=== PATIENT | female | born 1955 | race Caucasian/White ===

== ENCOUNTER 2019-04-16 08:17 | Observation (INO) | payer BC ==
[2019-04-16] MEDS ORDERED: Sodium Chloride 0.9% 1,000 ML IV ONE (08:30)
[2019-04-16] MEDS ORDERED: Albuterol/Ipratropium 3.0-0.5 MG/3 ML Neb Soln NEB ONE (09:25)
--- NOTE | 2019-04-16 09:25 | EDM.PDOC ---
ED HPI GENERAL MEDICAL PROBLEM - General Chief Complaint: General Stated Complaint: short of breath, body tremors Time Seen by Provider: 04/16/19 08:45 Source of Information: Reports: Patient, Family History Limitations: Reports: No Limitations - History of Present Illness INITIAL COMMENTS - FREE TEXT/NARRATIVE: Patient comes to the ER accompanied by . Sick for three days. Multiple symptoms, including feeling hot/chilled, sore throat, PAPPAS, body aches, cough, nausea, emesis, diarrhea. Describes diarrhea as yellowish. Also feels increased SOB. Heavy smoker. Admits to vaping and thinks that her overall SOB has worsened since she started doing that. is not ill. headache Pain Score (Numeric/FACES): 10 - Related Data Allergies Allergy/AdvReac Type Severity Reaction Status Date / Time No Known Allergies Allergy Verified 04/16/19 12:53 Home Meds: Home Meds ALPRAZolam [Alprazolam] 0.5 mg PO BEDTIME PRN 04/16/19 [History] Calcitriol 0.5 mcg PO DAILY 04/16/19 [History] Lisinopril 20 mg PO DAILY 04/16/19 [History] Omeprazole 20 mg PO DAILY 04/16/19 [History] Sertraline [Zoloft] 3 tab PO DAILY 04/16/19 [History] tiZANidine [Zanaflex] 4 mg PO TID 04/16/19 [History] traZODone HCl [Trazodone HCl] 100 mg PO BEDTIME 04/16/19 [History] Past Medical History Cardiovascular History: Reports: Hypertension Respiratory History: Reports: COPD Gastrointestinal History: Reports: GERD Psychiatric History: Reports: Anxiety, Depression Endocrine/Metabolic History: Reports: Hypomagnesemia, Hypothyroidism, Obesity/ BMI 30+, Other (See Below) (Chronically low serum calcium) Social & Family History - Tobacco Use Smoking Status *Q: Current Every Day Smoker Years of Tobacco use: 50 Packs/Tins Daily: 0.2 Used Tobacco, but Quit: No Second Hand Smoke Exposure: No - Alcohol Use Days Per Week of Alcohol Use: 2 Number of Drinks Per Day: 2 Total Drinks Per Week: 4 - Recreational Drug Use Recreational Drug Use: Yes Drug Use in Last 12 Months: Yes Recreational Drug Type: Reports: Marijuana/Hashish Recreational Drug Use Frequency: Weekly ED ROS GENERAL - Review of Systems Review Of Systems: See Below Constitutional: Reports: Fever, Chills, Malaise, Fatigue, Decreased Appetite. Denies: Night Sweats, Diaphoresis HEENT: Reports: Rhinitis, Throat Pain. Denies: Ear Pain, Eye Discharge, Eye Pain, Throat Swelling, Vertigo, Vision Change Respiratory: Reports: Shortness of Breath, Wheezing, Cough. Denies: Pleuritic Chest Pain, Sputum, Hemoptysis Cardiovascular: Reports: No Symptoms. Denies: Chest Pain, Lightheadedness, Palpitations, Syncope GI/Abdominal: Reports: Diarrhea, Decreased Appetite, Nausea, Vomiting. Denies: Abdominal Pain, Difficulty Swallowing, Hematemesis, Hematochezia : Reports: No Symptoms Musculoskeletal: Reports: Muscle Pain (diffuse aches) Skin: Reports: No Symptoms Neurological: Reports: Headache. Denies: Confusion, Dizziness, Numbness, Paresthesia, Difficulty Walking Psychiatric: Reports: No Symptoms Hematologic/Lymphatic: Reports: No Symptoms ED EXAM, GENERAL - Physical Exam Exam: See Below Exam Limited By: No Limitations General Appearance: Alert, No Apparent Distress, Obese Eye Exam: Bilateral Eye: EOMI, PERRL Ears: Normal External Exam, Normal Canal Nose: No: Nasal Deformity, Nasal Swelling, Nasal Drainage Throat/Mouth: Normal Lips, Normal Voice, No Airway Compromise Head: Atraumatic, Other Neck: Normal Inspection, Supple, Non-Tender, Full Range of Motion Respiratory/Chest: No Respiratory Distress, No Accessory Muscle Use, Chest Non- Tender, Decreased Breath Sounds (throughout), Wheezing (bilaterally). No: Stridor, Accessory Muscle Use, Retractions Cardiovascular: No Murmur, Tachycardia Peripheral Pulses: 2+: Radial (L), Radial (R) GI/Abdominal: Soft, No Distention, Abnormal Bowel Sounds (decreased throughout) . No: Guarding, Rigid, Rebound, Mass (Female) Exam: Deferred Rectal (Female) Exam: Deferred Back Exam: No: CVA Tenderness (L), CVA Tenderness (R), Decreased Range of Motion , Muscle Spasm, Paraspinal Tenderness, Vertebral Tenderness Extremities: Non-Tender, Normal Capillary Refill, Other (equal strength bilaterally) Neurological: Alert, Oriented, Normal Cognition, No Motor/Sensory Deficits Psychiatric: Normal Affect, Normal Mood Skin Exam: Warm, Dry, Intact, Normal Color Course - Vital Signs Last Recorded V/S: Last Vital Signs Temp 38.3 C H 04/16/19 08:19 Pulse 104 H 04/16/19 12:41 Resp 29 H 04/16/19 12:41 BP 126/74 04/16/19 12:41 Pulse Ox 95 04/16/19 12:41 - Orders/Labs/Meds Orders: Active Orders 24 hr Category Date Time Status EKG Documentation Completion [RC] ASDIRECTED Care 04/16/19 08:28 Active RT Aerosol Therapy [RC] ASDIRECTED Care 04/16/19 09:25 Active Chest 1V Frontal [CR] Stat Exams 04/16/19 08:28 Taken PE Chest [Ang Chest] [CT] Stat Exams 04/16/19 09:45 Taken CULTURE BLOOD [BC] Stat Lab 04/16/19 08:45 Received CULTURE BLOOD [BC] Stat Lab 04/16/19 08:55 Received Sodium Chloride 0.9% [Saline Flush] Med 04/16/19 08:28 Active 10 ml FLUSH ASDIRECTED PRN Blood Culture x2 Reflex Set [OM.PC] Stat Oth 04/16/19 08:30 Ordered Saline Lock Insert [OM.PC] Routine Oth 04/16/19 08:28 Ordered Medication Orders Sodium Chloride (Saline Flush) 10 ml FLUSH ASDIRECTED PRN PRN Reason: Keep Vein Open Last Admin: 04/16/19 10:29 Dose: 10 ml Labs: Laboratory Tests 04/16/19 04/16/19 04/16/19 Range/Units 08:45 08:45 08:55 WBC 16.2 H (4.0-10.2) K/uL RBC 4.38 (3.77-5.09) M/uL Hgb 12.3 (11.7-15.5) g/dL Hct 37.1 (34.0-46.0) % MCV 84.7 (84.0-98.0) fL MCH 28.1 L (28.2-33.3) pg MCHC 33.2 (31.7-36.0) g/dL RDW 16.7 H (11.2-14.1) % Plt Count 341 (150-350) K/uL Neut % (Auto) 86.4 H (45.0-80.0) % Lymph % (Auto) 5.4 L (10.0-50.0) % Gove % (Auto) 6.6 (2.0-14.0) % Eos % (Auto) 1.4 (0.0-5.0) % Baso % (Auto) 0.2 (0.0-2.0) % Neut # (Auto) 13.97 H (1.40-7.00) K/uL Lymph # (Auto) 0.87 (0.50-3.50) K/uL Gove # (Auto) 1.06 H (0.00-1.00) K/uL Eos # (Auto) 0.22 (0.00-0.50) K/uL Baso # (Auto) 0.03 (0.00-0.20) K/uL D-Dimer, Quantitative 605 H (0-400) ng/mL Sodium 141 (136-145) mmol/L Potassium 3.9 (3.5-5.1) mmol/L Chloride 104 (98-107) mmol/L Carbon Dioxide 24.8 (21.0-32.0) mmol/L BUN 22 H (7-18) mg/dL Creatinine 0.78 (0.51-1.17) mg/dL Est Cr Clr Drug Dosing 60.50 mL/min Estimated GFR (MDRD) > 60 mL/min Glucose 100 (74-106) mg/dL Lactic Acid (0.4-2.0) mmol/L Calcium 7.7 L (8.5-10.1) mg/dL Magnesium 1.4 L (1.8-2.4) mg/dL Total Bilirubin 0.3 (0.2-1.0) mg/dL AST 37 (15-37) U/L ALT 38 (12-78) U/L Alkaline Phosphatase 88 (46-116) IU/L Troponin I 0.000 (0.000-0.056) ng/mL NT-Pro-B Natriuret Pep 32 (0-125) pg/mL Total Protein 7.4 (6.4-8.2) g/dL Albumin 3.4 (3.4-5.0) g/dL Specimen Type Urine Color Urine Appearance Urine pH (5.0-9.0) Ur Specific [place] (1.005-1.030) Urine Protein (NEGATIVE) mg/dL Urine Glucose (UA) (NEGATIVE) mg/dL Urine Ketones (NEGATIVE) mg/dL Urine Occult Blood (NEGATIVE) Urine Nitrite (NEGATIVE) Urine Bilirubin (NEGATIVE) Urine Urobilinogen (0.2-1.0) E.U./dL Ur Leukocyte Esterase (NEGATIVE) Urine RBC /HPF Urine WBC /HPF Urine Bacteria (NONE TO FEW) /HPF 04/16/19 04/16/19 Range/Units 08:55 09:25 WBC (4.0-10.2) K/uL RBC (3.77-5.09) M/uL Hgb (11.7-15.5) g/dL Hct (34.0-46.0) % MCV (84.0-98.0) fL MCH (28.2-33.3) pg MCHC (31.7-36.0) g/dL RDW (11.2-14.1) % Plt Count (150-350) K/uL Neut % (Auto) (45.0-80.0) % Lymph % (Auto) (10.0-50.0) % Gove % (Auto) (2.0-14.0) % Eos % (Auto) (0.0-5.0) % Baso % (Auto) (0.0-2.0) % Neut # (Auto) (1.40-7.00) K/uL Lymph # (Auto) (0.50-3.50) K/uL Gove # (Auto) (0.00-1.00) K/uL Eos # (Auto) (0.00-0.50) K/uL Baso # (Auto) (0.00-0.20) K/uL D-Dimer, Quantitative (0-400) ng/mL Sodium (136-145) mmol/L Potassium (3.5-5.1) mmol/L Chloride (98-107) mmol/L Carbon Dioxide (21.0-32.0) mmol/L BUN (7-18) mg/dL Creatinine (0.51-1.17) mg/dL Est Cr Clr Drug Dosing mL/min Estimated GFR (MDRD) mL/min Glucose (74-106) mg/dL Lactic Acid 1.5 (0.4-2.0) mmol/L Calcium (8.5-10.1) mg/dL Magnesium (1.8-2.4) mg/dL Total Bilirubin (0.2-1.0) mg/dL AST (15-37) U/L ALT (12-78) U/L Alkaline Phosphatase (46-116) IU/L Troponin I (0.000-0.056) ng/mL NT-Pro-B Natriuret Pep (0-125) pg/mL Total Protein (6.4-8.2) g/dL Albumin (3.4-5.0) g/dL Specimen Type Urinvoid Urine Color Yellow Urine Appearance Clear Urine pH 7.5 (5.0-9.0) Ur Specific [place] 1.015 (1.005-1.030) Urine Protein Negative (NEGATIVE) mg/dL Urine Glucose (UA) Negative (NEGATIVE) mg/dL Urine Ketones Negative (NEGATIVE) mg/dL Urine Occult Blood Negative (NEGATIVE) Urine Nitrite Negative (NEGATIVE) Urine Bilirubin Negative (NEGATIVE) Urine Urobilinogen 0.2 (0.2-1.0) E.U./dL Ur Leukocyte Esterase Negative (NEGATIVE) Urine RBC Not seen /HPF Urine WBC Not seen /HPF Urine Bacteria Not seen (NONE TO FEW) /HPF Meds: Medications Generic Name Dose Route Start Last Admin Trade Name Freq PRN Reason Stop Dose Admin Sodium Chloride 10 ml 04/16/19 08:28 04/16/19 10:29 Saline Flush FLUSH 10 ml ASDIRECTED PRN Administration Keep Vein Open Discontinued Medications Generic Name Dose Route Start Last Admin Trade Name Freq PRN Reason Stop Dose Admin Acetaminophen 650 mg 04/16/19 10:33 04/16/19 10:37 Tylenol PO 04/16/19 10:34 650 mg NOW ONE Administration Albuterol/Ipratropium 3 ml 04/16/19 09:25 04/16/19 09:54 Duoneb 3.0-0.5 Mg/3 Ml NEB 04/16/19 09:26 3 ml ONETIME ONE Administration Sodium Chloride 1,000 mls @ 999 mls/hr 04/16/19 08:30 04/16/19 08:41 Normal Saline IV 04/16/19 09:30 999 mls/hr .BOLUS ONE Administration Magnesium Sulfate/Dextrose 1 100 mls @ 100 mls/hr 04/16/19 09:28 04/16/19 09: 54 gm/ Premix IV 04/16/19 10:27 100 mls/hr ONETIME ONE Administration Magnesium Sulfate/Dextrose 1 100 mls @ 100 mls/hr 04/16/19 11:00 gm/ Premix IV 04/16/19 11:59 ONETIME ONE Iopamidol 100 ml 04/16/19 09:47 04/16/19 10:23 Isovue-370 (76%) IVPUSH 04/16/19 09:48 100 ml ONETIME ONE Administration Iopamidol Confirm 04/16/19 09:58 Isovue-370 (76%) Administered 04/16/19 09:59 Dose 100 ml .ROUTE .STK-MED ONE Methylprednisolone Sodium Succinate 125 mg 04/16/19 10:23 04/16/19 10:29 Solu-Medrol IVPUSH 04/16/19 10:24 125 mg ONETIME ONE Administration Ondansetron HCl 4 mg 04/16/19 10:23 04/16/19 10:29 Zofran IVPUSH 04/16/19 10:24 4 mg ONETIME ONE Administration - Radiology Interpretation Free Text/Narrative:: Chest xray did not show focal acute abnormalities. CT Results Date: 04/16/19 CT Results Time: 11:25 (Moderate hiatal hernia, mild COPD changes, no focal pneumonia or PE) - Re-Assessments/Exams Free Text/Narrative Re-Assessment/Exam: Elevated WBC, mildly elevated troponin, decreased Ca/Mg Troponin and Lactic acid normal. UA unremarkable. Patient given IV fluid bolus, DuoNeb, Zofran, Mag. CT ordered to rule out PE given + DDimer. Chest xray taken showed questionable infiltrate/atelectasis left lower lung but was cleared by Radiology. CT showed no evidence of PE. Influenza negative. Suspect viral illness based on history and exam. No focal pneumonia identified. Blood cultures were ordered given fever/malaise. Mild dehydration. COPD exacerbation. Admit to floor for observation. Departure - Departure Time of Disposition: 11:42 Disposition: Refer to Observation Condition: Good Clinical Impression: Flu-like symptoms COPD (chronic obstructive pulmonary disease) Qualifiers: COPD type: COPD with acute exacerbation Qualified Code(s): J44.1 - Chronic obstructive pulmonary disease with (acute) exacerbation - Discharge Information *PRESCRIPTION DRUG MONITORING PROGRAM REVIEWED*: Not Applicable *COPY OF PRESCRIPTION DRUG MONITORING REPORT IN PATIENT GRISEL: Not Applicable - Problem List & Annotations (1) Flu-like symptoms SNOMED Code(s): 474557768 Code(s): R68.89 - OTHER GENERAL SYMPTOMS AND SIGNS Status: Acute Priority : High Current Visit: Yes Onset Date: 04/13/19 Annotation/Comment:: Body aches/respiratory and GI complaints. Mild dehydration. Suspect respiratory component led to COPD exacerbation (mild). Negative influenza screen. No focal pneumonia on CT/plain films (2) COPD exacerbation SNOMED Code(s): 731044716 Code(s): J44.1 - CHRONIC OBSTRUCTIVE PULMONARY DISEASE W (ACUTE) EXACERBATION Status: Chronic Priority: Medium Current Visit: Yes Annotation/Comment:: Increased SOB over last several days. Patient denies previous diagnosis of COPD but has been lifelong smoker. COPD changes noted on CT per Radiology. Will continue regular nebs. Single dose Solumedrol given in ER. (3) Mild dehydration SNOMED Code(s): 5597367008730 Code(s): E86.0 - DEHYDRATION Status: Acute Priority: Medium Current Visit: Yes Annotation/Comment:: Vomiting and diarrhea x3 days. Decreased PO intake. IV fluid bolus given in ER and will continue to receive maintenance fluids. (4) Tobacco abuse SNOMED Code(s): 232145943 Code(s): Z72.0 - TOBACCO USE Status: Chronic Priority: Medium Current Visit: Yes Annotation/Comment:: Patient has tried to cut down smoking. (5) Anxiety and depression SNOMED Code(s): 330849077 Code(s): F41.9 - ANXIETY DISORDER, UNSPECIFIED; F32.9 - MAJOR DEPRESSIVE DISORDER, SINGLE EPISODE, UNSPECIFIED Status: Chronic Priority: Medium Current Visit: Yes Annotation/Comment:: Increased problems with anxiety and stress since of best friend a month ago. (6) Hypocalcemia SNOMED Code(s): 7753389 Code(s): E83.51 - HYPOCALCEMIA Status: Chronic Priority: Low Current Visit: Yes Annotation/Comment:: Chronic problems with low calcium that has been worked up by primary providers previously. Continue to observe. (7) Hiatal hernia with GERD SNOMED Code(s): 628948961 Code(s): K21.9 - GASTRO-ESOPHAGEAL REFLUX DISEASE WITHOUT ESOPHAGITIS; K44.9 - DIAPHRAGMATIC HERNIA WITHOUT OBSTRUCTION OR GANGRENE Status: Chronic Priority: Low Current Visit: No Annotation/Comment:: Stable per history (8) Hypomagnesemia SNOMED Code(s): 617347472 Code(s): E83.42 - HYPOMAGNESEMIA Status: Acute Priority: Medium Current Visit: Yes Annotation/Comment:: IV Mag replacement ordered. Suspect this is a chronic condition. Will recommend continued supplementation after discharge home. (9) Hypothyroid SNOMED Code(s): 93442188 Code(s): E03.9 - HYPOTHYROIDISM, UNSPECIFIED Status: Chronic Priority: Low Current Visit: No Annotation/Comment:: TSH ordered. Stable per history Qualifiers: Hypothyroidism type: unspecified Qualified Code(s): E03.9 - Hypothyroidism , unspecified - Problem List Review Problem List Initiated/Reviewed/Updated: Yes - My Orders Last 24 Hours: My Active Orders 04/16/19 08:28 EKG Documentation Completion [RC] ASDIRECTED Chest 1V Frontal [CR] Stat Sodium Chloride 0.9% [Saline Flush] 10 ml FLUSH ASDIRECTED PRN Saline Lock Insert [OM.PC] Routine 04/16/19 08:30 Blood Culture x2 Reflex Set [OM.PC] Stat 04/16/19 08:45 CULTURE BLOOD [BC] Stat 04/16/19 08:55 CULTURE BLOOD [BC] Stat 04/16/19 09:25 RT Aerosol Therapy [RC] ASDIRECTED 04/16/19 09:45 PE Chest [Ang Chest] [CT] Stat - Assessment/Plan Admission H&P: Please use this note as an admission H&P Last 24 Hours: My Active Orders 04/16/19 08:28 EKG Documentation Completion [RC] ASDIRECTED Chest 1V Frontal [CR] Stat Sodium Chloride 0.9% [Saline Flush] 10 ml FLUSH ASDIRECTED PRN Saline Lock Insert [OM.PC] Routine 04/16/19 08:30 Blood Culture x2 Reflex Set [OM.PC] Stat 04/16/19 08:45 CULTURE BLOOD [BC] Stat 04/16/19 08:55 CULTURE BLOOD [BC] Stat 04/16/19 09:25 RT Aerosol Therapy [RC] ASDIRECTED 04/16/19 09:45 PE Chest [Ang Chest] [CT] Stat Assessment:: as above Plan: as above. Anticipate discharge likely tomorrow afternoon if patient shows good clinic improvement with above interventions. Patient stable and suitable for general supervision.
[2019-04-16 09:26] LABS: CHLORIDE,CL 104 mmol/L (98-107); SODIUM,NA 141 mmol/L (136-145)
[2019-04-16] MEDS ORDERED: Iopamidol 755 Mg/ML 100 ML Bottle IVPUSH ONE (09:47)
[2019-04-16] MEDS ORDERED: Iopamidol 755 Mg/ML 100 ML Bottle ONE (09:58)
[2019-04-16] MEDS ORDERED: methylPREDNISolone Sodium Succinate 125 MG/2 ML SDV IVPUSH ONE (10:23)
[2019-04-16] MEDS ORDERED: Ondansetron 4 MG/2 ML SDV IVPUSH ONE (10:23)
[2019-04-16] MEDS: Sodium Chloride 0.9% 10 ML Syringe FLUSH PRN ×3 (10:29→14:49)
[2019-04-16] MEDS ORDERED: Acetaminophen 325 MG Tab PO ONE (10:33)
[2019-04-16] MEDS ORDERED: ALPRAZolam 0.25 MG Tab PO PRN (13:32)
[2019-04-16] MEDS ORDERED: Pantoprazole 40 MG Vial IVPUSH ONE (13:33)
[2019-04-16] MEDS ORDERED: Loperamide 2 MG Tab PO ONE (13:34)
[2019-04-16] MEDS: Albuterol/Ipratropium 3.0-0.5 MG/3 ML Neb Soln NEB SCH ×2 (14:40→20:03)
[2019-04-16] MEDS: Calcitriol 0.25 MCG Cap PO SCH (14:40)
[2019-04-16] MEDS: Nicotine 7 MG/24 Hr Patch TRDERM SCH (14:40)
[2019-04-16] MEDS: Sodium Chloride 0.9% 1,000 ML IV SCH ×2 (14:59→23:51)
[2019-04-16] MEDS: Acetaminophen 325 MG Tab PO PRN (15:24)
[2019-04-16] MEDS ORDERED: Ondansetron 4 MG/2 ML SDV IVPUSH PRN (16:30)
[2019-04-16] MEDS ORDERED: Temazepam 15 MG Cap PO ONE (18:58)
[2019-04-16] MEDS ORDERED: traZODone 50 MG Tab PO SCH (20:00)
[2019-04-16] MEDS: tiZANidine 4 MG Tab PO SCH (20:02)
[2019-04-17] MEDS: Acetaminophen 325 MG Tab PO PRN ×2 (01:29→08:01)
[2019-04-17] MEDS: Albuterol/Ipratropium 3.0-0.5 MG/3 ML Neb Soln NEB SCH ×3 (01:30→13:32)
[2019-04-17 07:10] VITALS: BP 156/65; PULSE 110
[2019-04-17 07:43] LABS: CHLORIDE,CL 109 mmol/L (98-107); SODIUM,NA 145 mmol/L (136-145)
[2019-04-17] MEDS: tiZANidine 4 MG Tab PO SCH ×2 (08:00→13:32)
[2019-04-17] MEDS ORDERED: Lisinopril 20 MG Tab PO SCH (08:00)
[2019-04-17] MEDS ORDERED: Sertraline 25 MG Tab PO SCH (08:00)
[2019-04-17] MEDS ORDERED: Remove Patch NICOTINE PATCH TRDERM SCH (08:00)
[2019-04-17] MEDS ORDERED: Omeprazole 20 MG Cap.CR PO SCH (08:00)
[2019-04-17] MEDS: Calcitriol 0.25 MCG Cap PO SCH (08:01)
[2019-04-17] MEDS: Nicotine 7 MG/24 Hr Patch TRDERM SCH (08:03)
[2019-04-17] MEDS: Sodium Chloride 0.9% 1,000 ML IV SCH (08:05)
[2019-04-17] MEDS ORDERED: Magnesium Oxide 400 MG Tab PO ONE (12:19)
--- NOTE | 2019-04-17 13:27 | PCM.DCSUM1 ---
Discharge Summary - Hospital Course Brief History: Patient admitted for observation after experiencing three days of nausea/emesis/diarrhea/sore throat/body aches/cough/fever. Influenza negative. Dehydration. Anxious. Diagnosis: Stroke: No - Discharge Data Discharge Date: 04/17/19 Discharge Disposition: Home, Self-Care 01 Condition: Good - Referral to Home Health Primary Care Physician: Heavenly Bello PA-C - Discharge Diagnosis/Problem(s) (1) Flu-like symptoms SNOMED Code(s): 701095630 ICD Code: R68.89 - OTHER GENERAL SYMPTOMS AND SIGNS Status: Acute Priority: High Onset Date: 04/13/19 Problem Details: Body aches/respiratory and GI complaints. Suspect viral illness. Negative influenza screen. No focal pneumonia on CT/plain films. Feels much improved today. BLood cultures negative on day 1. (2) COPD exacerbation SNOMED Code(s): 646159229 ICD Code: J44.1 - CHRONIC OBSTRUCTIVE PULMONARY DISEASE W (ACUTE) EXACERBATION Status: Chronic Priority: Medium Problem Details: Increased SOB over last several days. Patient denies previous diagnosis of COPD but has been lifelong smoker. COPD changes noted on CT per Radiology. SoluMedrol given in ER. DuoNebs ordered. Patient feels much improved today. Wheezing resolved. Upon discharge patient will receive Rx for Combivent inhaler as well as PRN Albuterol nebs. (3) Mild dehydration SNOMED Code(s): 9545731539188 ICD Code: E86.0 - DEHYDRATION Status: Acute Priority: Medium Problem Details: Vomiting and diarrhea x3 days. Decreased PO intake. IV fluid bolus given in ER and continued to receive maintenance fluids. Able to tolerate PO fluids today. (4) Tobacco abuse SNOMED Code(s): 378352691 ICD Code: Z72.0 - TOBACCO USE Status: Chronic Priority: Medium Problem Details: Patient has tried to cut down smoking. Was given information on smoking cessation. (5) Anxiety and depression SNOMED Code(s): 824552928 ICD Code: F41.9 - ANXIETY DISORDER, UNSPECIFIED; F32.9 - MAJOR DEPRESSIVE DISORDER, SINGLE EPISODE, UNSPECIFIED Status: Chronic Priority: Medium Problem Details: Increased problems with anxiety and stress since of best friend a month ago. To follow up with primary provider. (6) Hypocalcemia SNOMED Code(s): 5657344 ICD Code: E83.51 - HYPOCALCEMIA Status: Chronic Priority: Low Problem Details: Chronic problems with low calcium that has been worked up by primary providers previously. Continue to observe. Level decreased this morning along with Hgb which most likely is secondary to dilutional effect of IV fluids. (7) Hiatal hernia with GERD SNOMED Code(s): 464674977 ICD Code: K21.9 - GASTRO-ESOPHAGEAL REFLUX DISEASE WITHOUT ESOPHAGITIS; K44.9 - DIAPHRAGMATIC HERNIA WITHOUT OBSTRUCTION OR GANGRENE Status: Chronic Priority: Low Problem Details: Stable per history (8) Hypomagnesemia SNOMED Code(s): 044699465 ICD Code: E83.42 - HYPOMAGNESEMIA Status: Acute Priority: Medium Problem Details: IV Mag replacement ordered. Level at low normal today when rechecked. Suspect this is a chronic condition. Will recommend continued supplementation after discharge home. (9) Hypothyroid SNOMED Code(s): 62628260 ICD Code: E03.9 - HYPOTHYROIDISM, UNSPECIFIED Status: Chronic Priority: Low Problem Details: TSH normal Qualifiers: Hypothyroidism type: unspecified Qualified Code(s): E03.9 - Hypothyroidism , unspecified - Patient Summary/Data Hospital Course: Patient received IV fluids/DuoNebs/Zofran/Imodium and was observed overnight. No further emesis. Loose stools improved. No further fevers. Able to tolerate PO food/fluids. Overall feels much improved. Did mention on/off "ovarian" pain for the last year, gradually worsening. Says she was told in past that she had scar tissue around the ovary. History of partial hysterectomy. Focally tender during exam right suprapubic area. US of pelvis ordered for further evaluation with planned follow up with primary provider. Tech did not note any obvious abnormalities. Patient to follow up with primary provider for formal results. - Patient Instructions Diet: Usual Diet as Tolerated Activity: As Tolerated Driving: Do Not Drive Showering/Bathing: May Shower Notify Provider of: Fever, Increased Pain Other/Special Instructions: Continue taking either Magnesium Glycinate or Magnesium Taurate 500mg daily. Follow up with for ultrasound results and further care for your ongoing problems/concerns. Use the nebs twice daily to help with cough/shortness of breath. If needed you can use them every 8 hours. Discuss adding other inhalers to regimen when you follow up with your primary provider. Advance diet as tolerated. Follow up for recheck if you have sudden worsening problems. - Discharge Plan *PRESCRIPTION DRUG MONITORING PROGRAM REVIEWED*: Not Applicable *COPY OF PRESCRIPTION DRUG MONITORING REPORT IN PATIENT GRISEL: Not Applicable Prescriptions/Med Rec: Albuterol [Proventil Neb Soln] 2.5 mg .XX ASDIRECTED PRN #1 box PRN Reason: Shortness Of Breath Albuterol/Ipratropium [Combivent Respimat] 4 gm IH ASDIRECTED #1 aer.w.adap Magnesium Glycinate [Magnesium Bisglycinate Chelate] 500 gm MC DAILY #1 powder Home Medications: Home Meds ALPRAZolam [Alprazolam] 0.5 mg PO BEDTIME PRN 04/16/19 [History] Calcitriol 0.5 mcg PO DAILY 04/16/19 [History] Lisinopril 20 mg PO DAILY 04/16/19 [History] Omeprazole 20 mg PO DAILY 04/16/19 [History] Sertraline [Zoloft] 3 tab PO DAILY 04/16/19 [History] tiZANidine [Zanaflex] 4 mg PO TID 04/16/19 [History] traZODone HCl [Trazodone HCl] 100 mg PO BEDTIME 04/16/19 [History] Albuterol [Proventil Neb Soln] 2.5 mg .XX ASDIRECTED PRN #1 box 04/17/19 [Rx] Albuterol/Ipratropium [Combivent Respimat] 4 gm IH ASDIRECTED #1 aer.w.adap 08/31 [Rx] Magnesium Glycinate [Magnesium Bisglycinate Chelate] 500 gm MC DAILY #1 powder 04/17/19 [Rx] Patient Handouts: Coping with Quitting Smoking, Chronic Obstructive Pulmonary Disease, Hypomagnesemia, What You Need to Know About Electronic Cigarettes, How to Use a Nebulizer, Adult, Nicotine skin patches, Albuterol; Ipratropium solution for inhalation, Dehydration, Adult Forms: ED Department Discharge Referrals: Heavenly Bello PA-C [Primary Care Provider] - - Discharge Summary/Plan Comment DC Time >30 min.: No - General Info Date of Service: 04/17/19 Admission Dx/Problem (Free Text: Flu-like illness for 3 days, dehydration, anxiety Subjective Update: Patient feels significantly improved today. Does complain of intermittent pain in area of right ovary that has been longstanding issue over the past year. Had similar issues in past and told it was due to scar tissue. Functional Status: Reports: Pain Controlled, Tolerating Diet, Ambulating, Urinating. Denies: New Symptoms - Review of Systems General: Reports: Fatigue, Appetite (improving). Denies: Fever, Malaise, Chills , Night Sweats HEENT: Reports: No Symptoms Pulmonary: Reports: Shortness of Breath (much improved. No complaint of SOB at this time. ). Denies: Pleuritic Chest Pain, Cough, Sputum, Hemoptysis, Wheezing Cardiovascular: Reports: No Symptoms. Denies: Chest Pain, Palpitations, Dyspnea on Exertion, Lightheadedness Gastrointestinal: Reports: Diarrhea (much improved), Vomiting (No emesis since admission), Other (discomfort in area of right lower abdomen suprapubically). Denies: Hematochezia, Nausea Genitourinary: Reports: No Symptoms Musculoskeletal: Reports: Other (no acute changes) Skin: Reports: No Symptoms Neurological: Denies: Confusion, Dizziness, Headache, Change in Speech Psychiatric: Reports: Depression (mild), Anxiety (chronic). Denies: Confusion, Mood Lability, Agitation, Cravings, Hallucinations, Suicidal Ideation, Homicidal Ideation - Patient Data Vitals - Most Recent: Last Vital Signs Temp 36.2 C 04/17/19 07:09 Pulse 110 H 04/17/19 07:09 Resp 18 04/17/19 07:09 BP 156/65 H 04/17/19 08:01 Pulse Ox 95 04/17/19 07:09 Weight - Most Recent: 68.674 kg I&O - Last 24 hours: Intake & Output 04/16/19 04/17/19 04/17/19 22:59 06:59 14:59 Intake Total 600 1740 585 Output Total 500 1400 550 Balance 100 340 35 Lab Results - Last 24 hrs: Laboratory Results - last 24 hr 04/16/19 04/17/19 04/17/19 Range/Units 08:55 07:20 07:20 WBC 16.1 H (4.0-10.2) K/uL RBC 3.61 L (3.77-5.09) M/uL Hgb 10.1 L D (11.7-15.5) g/dL Hct 31.0 L (34.0-46.0) % MCV 85.9 (84.0-98.0) fL MCH 28.0 L (28.2-33.3) pg MCHC 32.6 (31.7-36.0) g/dL RDW 17.1 H (11.2-14.1) % Plt Count 281 (150-350) K/uL Neut % (Auto) 85.1 H (45.0-80.0) % Lymph % (Auto) 7.4 L (10.0-50.0) % [place] % (Auto) 7.4 (2.0-14.0) % Eos % (Auto) 0.0 (0.0-5.0) % Baso % (Auto) 0.1 (0.0-2.0) % Neut # (Auto) 13.70 H (1.40-7.00) K/uL Lymph # (Auto) 1.19 (0.50-3.50) K/uL [place] # (Auto) 1.20 H (0.00-1.00) K/uL Eos # (Auto) 0.00 (0.00-0.50) K/uL Baso # (Auto) 0.02 (0.00-0.20) K/uL Sodium 145 (136-145) mmol/L Potassium 3.6 (3.5-5.1) mmol/L Chloride 109 H (98-107) mmol/L Carbon Dioxide 22.8 (21.0-32.0) mmol/L BUN 17 (7-18) mg/dL Creatinine 0.79 (0.51-1.17) mg/dL Est Cr Clr Drug Dosing 59.74 mL/min Estimated GFR (MDRD) > 60 mL/min Glucose 118 H (74-106) mg/dL Calcium 6.6 L (8.5-10.1) mg/dL Magnesium 1.8 (1.8-2.4) mg/dL Total Bilirubin 0.2 (0.2-1.0) mg/dL AST 19 (15-37) U/L ALT 20 (12-78) U/L Alkaline Phosphatase 67 (46-116) IU/L Total Protein 6.7 (6.4-8.2) g/dL Albumin 2.9 L (3.4-5.0) g/dL TSH, Ultra Sensitive 0.570 (0.358-3.740) mIU/mL DINA Results - Last 24 hrs: Microbiology 04/16/19 08:55 Aerobic Blood Culture - Preliminary Blood - Venous - Lab Draw NO GROWTH AFTER 1 DAY Anaerobic Blood Culture - Preliminary NO GROWTH AFTER 1 DAY 04/16/19 08:45 Aerobic Blood Culture - Preliminary Blood - Venous NO GROWTH AFTER 1 DAY Anaerobic Blood Culture - Preliminary NO GROWTH AFTER 1 DAY 04/16/19 10:01 Influenza Type A Antigen Screen - Final Nasal Aspirate, Left NEGATIVE INFLUENZA A VIRUS AG REFERENCE RANGE: NEGATIVE Influenza Type B Antigen Screen - Final NEGATIVE INFLUENZA B VIRUS AG REFERENCE RANGE: NEGATIVE Med Orders - Current: Current Medications Acetaminophen (Tylenol) 650 mg PO Q4H PRN PRN Reason: Pain (Mild 1-3)/fever Last Admin: 04/17/19 08:01 Dose: 650 mg Albuterol/Ipratropium (Duoneb 3.0-0.5 Mg/3 Ml) 3 ml NEB Q6H RAMAN Last Admin: 04/17/19 08:03 Dose: 3 ml Alprazolam (Xanax) 0.5 mg PO BEDTIME PRN PRN Reason: Anxiety Last Admin: 04/16/19 14:41 Dose: 0.5 mg Calcitriol (Rocaltrol) 0.5 mcg PO DAILY RAMAN Last Admin: 04/17/19 08:01 Dose: 0.5 mcg Sodium Chloride (Normal Saline) 1,000 mls @ 125 mls/hr IV ASDIRECTED RAMAN Last Admin: 04/17/19 08:05 Dose: 125 mls/hr Lisinopril (Prinivil) 20 mg PO DAILY RAMAN Last Admin: 04/17/19 08:01 Dose: 20 mg Miscellaneous Information (Remove Patch) 1 ea TRDERM DAILY RAMAN Last Admin: 04/17/19 08:04 Dose: 1 ea Nicotine (Habitrol) 7 mg TRDERM DAILY [facility] Last Admin: 04/17/19 08:03 Dose: 7 mg Omeprazole (Omeprazole) 20 mg PO DAILY [facility] Last Admin: 04/17/19 08:02 Dose: 20 mg Ondansetron HCl (Zofran) 4 mg IVPUSH Q6H PRN PRN Reason: Nausea/Vomiting Sertraline HCl (Zoloft) 75 mg PO DAILY [facility] Last Admin: 04/17/19 08:01 Dose: 75 mg Sodium Chloride (Saline Flush) 10 ml FLUSH ASDIRECTED PRN PRN Reason: Keep Vein Open Last Admin: 04/16/19 14:49 Dose: 10 ml Tizanidine HCl (Zanaflex) 4 mg PO TID@0800,1400,2000 [facility] Last Admin: 04/17/19 08:00 Dose: 4 mg Trazodone HCl (Trazodone) 100 mg PO BEDTIME [facility] Last Admin: 04/16/19 20:03 Dose: 100 mg Discontinued Medications Acetaminophen (Tylenol) 650 mg PO NOW ONE Stop: 04/16/19 10:34 Last Admin: 04/16/19 10:37 Dose: 650 mg Albuterol/Ipratropium (Duoneb 3.0-0.5 Mg/3 Ml) 3 ml NEB ONETIME ONE Stop: 04/16/19 09:26 Last Admin: 04/16/19 09:54 Dose: 3 ml Sodium Chloride (Normal Saline) 1,000 mls @ 999 mls/hr IV .BOLUS ONE Stop: 04/16/19 09:30 Last Admin: 04/16/19 08:41 Dose: 999 mls/hr Magnesium Sulfate/Dextrose 1 (gm/ Premix) 100 mls @ 100 mls/hr IV ONETIME ONE Stop: 04/16/19 10:27 Last Admin: 04/16/19 09:54 Dose: 100 mls/hr Magnesium Sulfate/Dextrose 1 (gm/ Premix) 100 mls @ 100 mls/hr IV ONETIME ONE Stop: 04/16/19 11:59 Last Admin: 04/16/19 13:31 Dose: 100 mls/hr Magnesium Sulfate/Dextrose 1 (gm/ Premix) 100 mls @ 100 mls/hr IV ONETIME ONE Stop: 04/16/19 21:59 Last Admin: 04/16/19 20:04 Dose: 100 mls/hr Iopamidol (Isovue-370 (76%)) 100 ml IVPUSH ONETIME ONE Stop: 04/16/19 09:48 Last Admin: 04/16/19 10:23 Dose: 100 ml Iopamidol (Isovue-370 (76%)) Confirm Administered Dose 100 ml .ROUTE .STK-MED ONE Stop: 04/16/19 09:59 Last Admin: 04/16/19 13:32 Dose: Not Given Loperamide HCl (Imodium Ad) 4 mg PO ONETIME ONE Stop: 04/16/19 13:35 Last Admin: 04/16/19 14:41 Dose: 4 mg Magnesium Oxide (Magnesium Oxide) 800 mg PO ONETIME ONE Stop: 04/17/19 12:20 Methylprednisolone Sodium Succinate (Solu-Medrol) 125 mg IVPUSH ONETIME ONE Stop: 04/16/19 10:24 Last Admin: 04/16/19 10:29 Dose: 125 mg Ondansetron HCl (Zofran) 4 mg IVPUSH ONETIME ONE Stop: 04/16/19 10:24 Last Admin: 04/16/19 10:29 Dose: 4 mg Pantoprazole Sodium (Protonix Iv) 40 mg IVPUSH ONETIME ONE Stop: 04/16/19 13:34 Last Admin: 04/16/19 14:40 Dose: 40 mg Temazepam (Restoril) 15 mg PO ONETIME ONE Stop: 04/16/19 18:59 Last Admin: 04/16/19 20:02 Dose: Not Given - Exam General: Reports: Alert, Oriented, Cooperative, No Acute Distress HEENT: Reports: Pupils Equal, Pupils Reactive, EOMI, Mucous Membr. Moist/Caban Neck: Reports: Supple Lungs: Reports: Clear to Auscultation, Normal Respiratory Effort. Denies: Decreased Breath Sounds, Crackles, Rales, Rhonchi, Rub, Stridor Cardiovascular: Reports: Regular Rate, Regular Rhythm GI/Abdominal Exam: Normal Bowel Sounds, Soft, No Distention, No Abnormal Bruit, Other (mild focal tenderness lower abdomen just to right of suprapubic area. ). No: Guarding, Rigid, Rebound (Female) Exam: Deferred Rectal (Female) Exam: Deferred Back Exam: Reports: Normal Inspection Extremities: Normal Range of Motion, Non-Tender, Normal Capillary Refill Skin: Reports: Warm, Dry, Intact Neurological: Reports: No New Focal Deficit Psy/Mental Status: Reports: Alert, Normal Affect, Normal Mood
== END 2019-04-17 14:56 | disposition home or self-care (01) ==
LOC: LL.ED 08:17 → LL.MS 12:14 → UNDOADMOB 12:14 → LL.MS 13:24
PROVIDERS: ADMIT Emergency Medicine; ATTEND Emergency Medicine
DX: R68.89 Other general symptoms and signs (principal); J44.1 Chronic obstructive pulmonary disease with (acute) exacerbation; E86.0 Dehydration; F41.9 Anxiety disorder, unspecified; E83.51 Hypocalcemia; K21.9 Gastro-esophageal reflux disease without esophagitis; E83.42 Hypomagnesemia; E03.9 Hypothyroidism, unspecified; I10 Essential (primary) hypertension; F32.9 Major depressive disorder, single episode, unspecified; F17.210 Nicotine dependence, cigarettes, uncomplicated
CPT/HCPCS: 36415; 71045; 71275; 76830; 76856; 80053; 81001; 83605; 83735; 83880; 84443; 84484; 85025; 85379; 87040; 87804; 93005; 94640; 96361; 96365; 96366; 96375; 99285-25; A9270-GY; C9113; J2405; J2930; J3475; J7030; J7620-GY; Q9967

== ENCOUNTER 2020-01-29 20:37 | Emergency (ER) | payer BC ==
--- NOTE | 2020-01-29 20:57 | EDM.PDOC ---
ED HPI GENERAL MEDICAL PROBLEM - General Chief Complaint: Back Pain or Injury Stated Complaint: enrike Chirinos Time Seen by Provider: 01/29/20 20:45 Source of Information: Reports: Patient, Old Records ([facility] chart/EMR) History Limitations: Reports: No Limitations - History of Present Illness INITIAL COMMENTS - FREE TEXT/NARRATIVE: Patient was brought to the emergency room via private automobile by her friend and neighbor for evaluation of 02/21 left-sided low back pain with left-sided sciatica. The patient has a long history of chronic low back pain including left-sided sciatica as below. She was shopping yesterday when she bent over and heard a "pop" at about 1500 hrs. yesterday afternoon and with no symptoms, fall, or other significant acute injury at that time. After the patient woke up at about 7 AM this morning she began experiencing some increasing low back spasms and sciatica as above. She has taken at least 11 tablets of ibuprofen since this morning with 5 tablets taken at 18:30 hours this evening. She also also tried BenGay with no improvement in her symptoms. No recent history of abdominal pain, heartburn, nausea, diarrhea, melena, gross hematochezia, or any food intolerance, including fatty foods, etc.. She denies any gross hematuria, colic, or other UTI symptoms. The patient also denies any recent fever, cough, wheezing, dyspnea, etc.. Onset: Gradual Onset Date: 01/28/20 Onset Time: 15:00 Duration: Constant, Getting Worse Location: Reports: Back, Lower Extremity, Left, Radiates to (As above). Denies: Face, Neck, Chest, Abdomen, Upper Extremity, Left, Upper Extremity, Right, Lower Extremity, Right Quality: Reports: Same as Previous Episode, Sharp, Throbbing Severity: Severe Improves with: Reports: None Worsens with: Reports: None Context: Reports: Other (As above). Denies: Sick Contact, Trauma Associated Symptoms: Denies: Confusion, Chest Pain, Cough, Diaphoresis, Fever/Chills, Headaches, Loss of Appetite, Nausea/Vomiting, Shortness of Breath, Syncope, Weakness Treatments DECKHAND: Reports: NSAIDS, Other Medication(s) (As above) Left Lower Back Pain Score (Numeric/FACES): 10 - Related Data Allergies Allergy/AdvReac Type Severity Reaction Status Date / Time No Known Allergies Allergy Verified 01/29/20 21:18 Home Meds: Home Meds Calcitriol 0.5 mcg PO DAILY 04/16/19 [History] Omeprazole 20 mg PO DAILY 04/16/19 [History] lisinopriL [Lisinopril] 20 mg PO DAILY 04/16/19 [History] traZODone HCl [Trazodone HCl] 100 mg PO BEDTIME 04/16/19 [History] Magnesium Glycinate [Magnesium Bisglycinate Chelate] 500 gm MC DAILY #1 powder 04/17/19 [Rx] Cyclobenzaprine [Flexeril] 10 mg PO TID PRN #30 tab 01/29/20 [Rx] Past Medical History HEENT History: Reports: Impaired Vision, Other (See Below) Other HEENT History: Patient wears glasses Cardiovascular History: Reports: Hypertension Respiratory History: Reports: Bronchitis, Recurrent, COPD, Intubation, Previous. Denies: Intubation, Difficult Gastrointestinal History: Reports: GERD, Hiatal Hernia, Other (See Below) Other Gastrointestinal History: Moderate hiatal hernia by x-rays. MEDICATION AID History: Reports: , Spontaneous : 6 Para: 4 LMP (Approximate): Other (See Below) Other MEDICATION AID History: SAB in first trimester with no D&C required. Severe premature delivery 4 months gestation with demise after 4 days. Additional apparent premature delivery at about 4-5 months with NICU care required however this baby did survive. Otherwise C-sections x1. Surgical menopause. Musculoskeletal History: Reports: Arthritis, Back Pain, Chronic, Fracture, Osteoarthritis, Other (See Below). Denies: Gout, RA, SLE Other Musculoskeletal History: Chronic low back pain with evidence of left-sided lateral T12 and L1 disc prolapse. Mild scoliosis. Right foot fracture at age 31. Right wrist fracture at age 7. Left wrist fracture at age 14. Right fifth finger fracture at age 13. Nonspecific back fracture at age 7?. Neurological History: Reports: Migraines, Other (See Below) Other Neuro History: Left-sided sciatica secondary to disc prolapse. Psychiatric History: Reports: Anxiety, Depression. Denies: Abuse, Victim of, ADD, Addiction, Psych Hospitalization(s), Psychosis, PTSD, Suicide Attempt Endocrine/Metabolic History: Reports: Hypomagnesemia, Hypothyroidism, Obesity/BMI 30+, Other (See Below) Other Endocrine/Metabolic History: Chronic hypocalcemia. - Past Surgical History Female Surgical History: Reports: Section, D&C, Hysterectomy - Past Imaging History Past Imaging History: Reports: CAT Scan (Negative CTA of the chest on 04/16/2019.), Mammogram (Last mammogram on 12/16/2015.), MRI (MRI of the lumbar spine on 08/20/2013.), Ultrasound (Pelvic ultrasound on 04/17/2019.) Social & Family History - Tobacco Use Smoking Status *Q: Former Smoker Tobacco Use Within Last Twelve Months: Cigarettes Years of Tobacco use: 50 Packs/Tins Daily: 0.5 Packs/Tins Daily Comment: Stop smoking about 1 year ago with patient smoking between ages 13 and 63. Used Tobacco, but Quit: Yes Smoking Cessation Information Provided To Patient: No Second Hand Smoke Exposure: No Source of Second Hand Smoke Exposure: chews tobacco Second Hand Smoke Education Provided: No - Alcohol Use Alcohol Use History: Yes Days Per Week of Alcohol Use: 2 Number of Drinks Per Day: 4 Number of Drinks Per Day Comment: Usually beer. No previous DWIs, problems with alcohol abuse, etc. Total Drinks Per Week: 8 Alcohol Use in Last Twelve Months: Yes - Recreational Drug Use Recreational Drug Type: Reports: Marijuana/Hashish (Since age 13) Recreational Drug Use Frequency: Daily - Living Situation & Occupation Living situation: Reports: , with Family Occupation: Retired (Previously in construction/hard labor) ED ROS GENERAL - Review of Systems Review Of Systems: Comprehensive ROS is negative, except as noted in HPI. ED EXAM,LOWER BACK PAIN/INJURY - Physical Exam Exam: See Below Exam Limited By: No Limitations General Appearance: Alert, WD/WN, No Apparent Distress, Anxious (Moderate) Head: Atraumatic, Normocephalic Neck: Normal Inspection, Supple, Non-Tender, Full Range of Motion Respiratory/Chest: No Respiratory Distress, Lungs Clear, Normal Breath Sounds, No Accessory Muscle Use, Chest Non-Tender. No: Pleural Rub, Retractions Cardiovascular: Normal Peripheral Pulses, Regular Rate, Rhythm, No Edema, No Gallop, No JVD, No Murmur, No Rub. No: Gallop/S3, Gallop/S4, Friction Rub GI/Abdominal: Normal Bowel Sounds, Soft, Non-Tender, No Organomegaly, No Distention, No Abnormal Bruit, No Mass, Pelvis Stable, Other (Obese). No: Guarding (Female) Exam: Deferred Rectal (Female) Exam: Deferred Back Exam: Decreased Range of Motion (Secondary to pain), Muscle Spasm (As below), Paraspinal Tenderness (Moderate left-sided mid to lower palpation pain and secondary spasms). No: CVA Tenderness (L), CVA Tenderness (R), Vertebral Tenderness Extremities: Normal Inspection, Normal Range of Motion, Non-Tender, No Pedal Edema, Normal Capillary Refill. No: Kurt's Sign Neurological: Alert, Normal Mood/Affect, Normal Dorsiflexion, CN II-XII Intact, Normal Plantar Flexion, Normal Gait, Normal Reflexes, No Motor/Sensory Deficits, Oriented x 3 Psychiatric: Anxious (Moderate), Depressed Mood (Mild to moderate) Skin Exam: Tattoo(s) (Multiple). No: Diaphoretic, Ecchymosis, Petechiae, Wound/Incision Course - Vital Signs Last Recorded V/S: Last Vital Signs Temp 36.9 C 01/29/20 20:47 Pulse 72 01/29/20 20:47 Resp 16 01/29/20 20:47 BP 144/72 H 01/29/20 20:47 Pulse Ox 92 L 01/29/20 20:47 Vital Signs - 24 hr 01/29/20 01/29/20 20:38 20:47 Temperature [ 36.9 C 36.9 C Skin] Pulse, 72 72 Peripheral [ Pulse Oximetry] Respiratory 16 16 Rate Blood Pressure 142/74 H 144/72 H [Left Upper Arm ] O2 Sat by Pulse 92 L 92 L Oximetry - Orders/Labs/Meds Orders: Active Orders 24 hr Category Date Time Status Obtain Past Medical Record [OM.PC] Routine Oth 01/29/20 21:09 Active Labs: None Meds: Medications Discontinued Medications Generic Name Dose Route Start Last Admin Trade Name Freq PRN Reason Stop Dose Admin Diazepam 10 mg 01/29/20 21:09 01/29/20 21:15 Valium IM 01/29/20 21:10 10 mg ONETIME ONE Administration Meperidine HCl 50 mg 01/29/20 21:57 01/29/20 22:16 Demerol IM 01/29/20 21:58 50 mg ONETIME ONE Administration Promethazine HCl 25 mg 01/29/20 21:58 01/29/20 22:14 Phenergan IM 01/29/20 21:59 25 mg ONETIME ONE Administration - Radiology Interpretation Free Text/Narrative:: None Departure - Departure Time of Disposition: 22:50 Disposition: Home, Self-Care 01 Condition: Good Clinical Impression: Anxiety and depression, Hiatal hernia with GERD, Illicit drug use, continuous COPD (chronic obstructive pulmonary disease) Qualifiers: COPD type: emphysema Emphysema type: panlobular Qualified Code(s): J43.1 - Panlobular emphysema Osteoarthritis Qualifiers: Osteoarthritis location: multiple joints Osteoarthritis type: primary Qualified Code(s): M89.49 - Other hypertrophic osteoarthropathy, multiple sites Low back pain Qualifiers: Chronicity: acute Back pain laterality: left Sciatica presence: with sciatica Sciatica laterality: sciatica of left side Qualified Code(s): M54.42 - Lumbago with sciatica, left side Hypertension Qualifiers: Hypertension type: essential hypertension Qualified Code(s): I10 - Essential (primary) hypertension - Discharge Information *PRESCRIPTION DRUG MONITORING PROGRAM REVIEWED*: Not Applicable *COPY OF PRESCRIPTION DRUG MONITORING REPORT IN PATIENT GRISEL: Not Applicable Prescriptions: Cyclobenzaprine [Flexeril] 10 mg PO TID PRN #30 tab PRN Reason: Spasms Instructions: Acute Back Pain, Adult, Diazepam injection Referrals: PCP,None [Primary Care Provider] - Forms: ED Department Discharge Additional Instructions: 1. Followup with your regular provider in 7-10 days as directed for reevaluation with consideration of repeat x-rays of your lumbar spine, including possible additional MRI depending on your symptoms at follow-up. Bring these discharge instructions with you to that visit. 2. Tylenol 650 mg by mouth every 4 hours and/or OTC ibuprofen 2-3 tabs by mouth every 6 hours with food as directed./needed. You may stagger these medications for 48-72 hours only, which essentially means that you are receiving a pain medication about every 2 hours. Note no further ibuprofen today, however. 3. NEVER EXCEED THE RECOMMENDED DOSE OF MEDICINES, INCLUDING OTC MEDICINES, ETC. 4. Sedation precautions with no driving, etc. for 18 hours because of emergency room medications. 5. BenGay or equivalent, heating pad, and/or ice packs as directed. 6. Congratulations about stopping smoking 7. Immediately after this visit verify that your cellular telephone's voicemail has been activated and is empty. Also verify that your home telephone's answering machine is operating properly and has space to receive messages. Note that it is sometimes necessary for us to be able to contact you at a later date to discuss your medical care. 8. Please remember that we are ALWAYS here for you and want to answer any questions you may have. Feel free to call the hospital any time and we call you back BRIGHT. 9. No trazodone this evening secondary to medications given in the emergency room 10. Dry mouth, sedation, etc. precautions with Flexeril as discussed. Sepsis Event Note (ED) - Evaluation Sepsis Screening Result: No Definite Risk - Focused Exam Vital Signs: Vital Signs Temp Pulse Resp BP Pulse Ox 01/29/20 20:47 36.9 C 72 16 144/72 H 92 L 01/29/20 20:38 36.9 C 72 16 142/74 H 92 L - Problem List & Annotations (1) Low back pain SNOMED Code(s): 048045861 Code(s): M54.5 - LOW BACK PAIN Status: Acute Priority: High Current Visit: Yes Onset Date: 01/28/20 Annotation/Comment:: No evidence of significant acute injury with patient being nonsymptomatic until waking up this morning. She was extensively cautioned not to excessively use OTC medications. Continue symptomatic relief as per discharge instructions. IM Valium given with patient observed for an extended period of time with no improvement. Secondary to refractory symptoms low-dose IM Phenergan and Demerol were given. Flexeril to be initiated in the a.m. Sedation precautions were given. Close follow-up by regular provider as per discharge instructions. No indication for x-rays today, however patient may need repeat x-rays and/or CT/MRI secondary to previous history. She would also benefit from physical therapy. Qualifiers: Chronicity: acute Back pain laterality: left Sciatica presence: with sciatica Sciatica laterality: sciatica of left side Qualified Code(s): M54.42 - Lumbago with sciatica, left side (2) Osteoarthritis SNOMED Code(s): 438745323 Code(s): M19.90 - UNSPECIFIED OSTEOARTHRITIS, UNSPECIFIED SITE Status: Chronic Priority: Medium Current Visit: Yes Annotation/Comment:: Otherwise stable by history Qualifiers: Osteoarthritis location: multiple joints Osteoarthritis type: primary Qualified Code(s): M89.49 - Other hypertrophic osteoarthropathy, multiple sites (3) COPD (chronic obstructive pulmonary disease) SNOMED Code(s): 40868163 Code(s): J44.9 - CHRONIC OBSTRUCTIVE PULMONARY DISEASE, UNSPECIFIED Status: Chronic Priority: Medium Current Visit: Yes Annotation/Comment:: No recent fever or bronchitic type symptoms. Patient was congratulated about recently stopping her tobacco use. Qualifiers: COPD type: emphysema Emphysema type: panlobular Qualified Code(s): J43.1 - Panlobular emphysema (4) Anxiety and depression SNOMED Code(s): 428124065 Code(s): F41.9 - ANXIETY DISORDER, UNSPECIFIED; F32.9 - MAJOR DEPRESSIVE DISORDER, SINGLE EPISODE, UNSPECIFIED Status: Chronic Priority: Medium Current Visit: Yes Annotation/Comment:: Poor control. Continue to observe closely by her regular provider. Note current marijuana use. (5) Hiatal hernia with GERD SNOMED Code(s): 301297301 Code(s): K21.9 - GASTRO-ESOPHAGEAL REFLUX DISEASE WITHOUT ESOPHAGITIS; K44.9 - DIAPHRAGMATIC HERNIA WITHOUT OBSTRUCTION OR GANGRENE Status: Chronic Priority: Medium Current Visit: Yes Annotation/Comment:: Stable per history in spite of excessive NSAID use today as above. Compliance with proper doses of medications strongly encouraged. (6) Hypertension SNOMED Code(s): 14692262 Code(s): I10 - ESSENTIAL (PRIMARY) HYPERTENSION Status: Chronic Priority: Medium Current Visit: Yes Annotation/Comment:: Somewhat elevated in the emergency room. Continue to observe closely by her regular provider. Qualifiers: Hypertension type: essential hypertension Qualified Code(s): I10 - Essential (primary) hypertension (7) Illicit drug use, continuous SNOMED Code(s): 254206558 Code(s): F19.90 - OTHER PSYCHOACTIVE SUBSTANCE USE, UNSPECIFIED, UNCOMPLICATED Status: Chronic Priority: Medium Current Visit: Yes Annotation/Comment:: Discontinuation of marijuana BRIGHT strongly encouraged. - Problem List Review Problem List Initiated/Reviewed/Updated: Yes - My Orders Last 24 Hours: My Active Orders 01/29/20 21:09 Obtain Past Medical Record [OM.PC] Routine - Assessment/Plan Last 24 Hours: My Active Orders 01/29/20 21:09 Obtain Past Medical Record [OM.PC] Routine Assessment:: As above Plan: As above. Extensive precautions were given to the patient and her friend, who are in agreement with the treatment plan.
[2020-01-29] MEDS ORDERED: Meperidine PF 25 MG/ML SDV IM ONE (21:57)
[2020-01-29] MEDS ORDERED: Promethazine 25 MG/ML SDV IM ONE (21:58)
== END 2020-01-29 22:45 | disposition home or self-care (01) ==
LOC: LL.ED 20:37
DX: M54.42 Lumbago with sciatica, left side (principal); M89.49 Other hypertrophic osteoarthropathy, multiple sites; J43.1 Panlobular emphysema; F41.9 Anxiety disorder, unspecified; F32.9 Major depressive disorder, single episode, unspecified; K44.9 Diaphragmatic hernia without obstruction or gangrene; K21.9 Gastro-esophageal reflux disease without esophagitis; M41.9 Scoliosis, unspecified; I10 Essential (primary) hypertension; F19.90 Other psychoactive substance use, unspecified, uncomplicated; Z79.899 Other long term (current) drug therapy; Z87.891 Personal history of nicotine dependence
CPT/HCPCS: 96372; 99283; J2175; J2550; J3360

== ENCOUNTER 2022-05-11 12:25 | Emergency (ER) | payer BC ==
[2022-05-11] MEDS ORDERED: Sodium Chloride 0.9% 10 ML Syringe FLUSH PRN (12:26)
[2022-05-11] MEDS ORDERED: Aspirin 81 MG Tab.Chew PO ONE (12:30)
[2022-05-11] MEDS ORDERED: Nitroglycerin 0.4 MG Tab.SL ONE (12:30)
[2022-05-11] MEDS: Nitroglycerin 0.4 MG Tab.SL SL PRN ×2 (12:31→12:49)
[2022-05-11] MEDS ORDERED: Ondansetron 4 MG/2 ML SDV ONE (12:33)
[2022-05-11] MEDS ORDERED: Ondansetron 4 MG/2 ML SDV IVPUSH ONE (12:36)
[2022-05-11] MEDS ORDERED: Metoprolol Tartrate 5 MG/5 ML SDV IVPUSH ONE (12:41)
[2022-05-11] MEDS ORDERED: Metoprolol Tartrate 5 MG/5 ML SDV ONE (12:41)
[2022-05-11 12:58] LABS: CHLORIDE,CL 98 mmol/L (98-107); SODIUM,NA 135 mmol/L (136-145)
[2022-05-11 12:59] LABS: ANION GAP 16.6 meq/L (7-15); ESTIMATED GFR 61 mL/min (>=60)
[2022-05-11] MEDS ORDERED: Iopamidol 612 MG/ML 100 ML Bottle IVPUSH ONE (14:04)
[2022-05-11] MEDS ORDERED: Iopamidol 612 MG/ML 100 ML Bottle ONE (14:10)
[2022-05-11 21:37] VITALS: BP 140/92; PULSE 102
== END 2022-05-11 17:05 | disposition home or self-care (01) ==
LOC: LL.ED 12:25
DX: R07.89 Other chest pain (principal); I10 Essential (primary) hypertension; J44.9 Chronic obstructive pulmonary disease, unspecified; K21.9 Gastro-esophageal reflux disease without esophagitis; Z23 Encounter for immunization; Z79.899 Other long term (current) drug therapy
CPT/HCPCS: 36415; 71045; 71260; 80053; 84484; 85025; 85379; 85610; 90662; 93005; 96374; 96375; 99284-25; A9270-GY; G0008; J2405; J3490; Q9967